=== PATIENT | female | born 1995 | race Caucasian/White ===

== ENCOUNTER 2018-08-26 21:21 | Emergency (ER) | payer BC ==
[2018-08-26] MEDS ORDERED: Sodium Chloride 0.9% 10 ML Syringe FLUSH PRN (21:26)
[2018-08-26] MEDS ORDERED: Sodium Chloride 0.9% 1,000 ML IV ONE (21:27)
--- NOTE | 2018-08-26 21:28 | EDM.PDOC ---
ED HPI GENERAL MEDICAL PROBLEM - General Chief Complaint: Syncope Stated Complaint: Passed out Time Seen by Provider: 08/26/18 21:25 Source of Information: Reports: Patient, EMS Notes Reviewed, RN, RN Notes Reviewed History Limitations: Reports: No Limitations - History of Present Illness INITIAL COMMENTS - FREE TEXT/NARRATIVE: Patient is brought to the ED at [facility] via EMS after the patient had an alleged seizure at a local restaurant. According to EMS, bystanders stated the patient "passed out" and "twitched." Apparently it lasted approximately 5 minutes per bystanders. The patient states she felt somewhat dizzy prior to the event. She states she "knew" she was going to "pass out." Patient states she remember waking up and people around her were asking if she was ok. Patient does not believe she had any head injury. She was helped to the floor by friends. She denies any history of seizures or any neurological problems. She denies any medical history. She currently denies any focal neurological deficits. She denies any headaches or vision problems. She states this past weekend she felt extremely tired and slept a lot. She states she had body aches and felt feverish. She states she has been under a lot of stress due to a recent breakup with her SO. She states she has not been drinking much water. She denies any N/V/D. No abdominal pain. Onset: Today, Sudden Onset Date: 08/26/18 Body aches Pain Score (Numeric/FACES): 4 - Related Data Allergies Allergy/AdvReac Type Severity Reaction Status Date / Time No Known Allergies Allergy Verified 08/26/18 22:07 Home Meds: Home Meds . [No Known Home Meds] 08/26/18 [History] ED ROS GENERAL - Review of Systems Review Of Systems: See Below Constitutional: Reports: Fever, Malaise, Fatigue. Denies: Chills Respiratory: Denies: Shortness of Breath, Cough Cardiovascular: Denies: Chest Pain, Palpitations Endocrine: Reports: Fatigue GI/Abdominal: Denies: Abdominal Pain, Nausea, Vomiting Skin: Reports: No Symptoms Neurological: Reports: Syncope - Physical Exam Exam: See Below Exam Limited By: No Limitations General Appearance: Alert, No Apparent Distress Eye Exam: Bilateral Eye: EOMI, Normal Inspection, PERRL Head Exam: Atraumatic, Normocephalic Neck: Supple, Non-Tender Respiratory/Chest: No Respiratory Distress, Lungs Clear, Normal Breath Sounds Cardiovascular: Normal Peripheral Pulses, Regular Rate, Rhythm GI/Abdominal: Normal Bowel Sounds, Soft, Non-Tender Neuro Exam (Abbreviated): Alert, Oriented, Normal Cognition, No Motor/Sensory Deficits, Other (Patient does not appear to be post ictal) Skin Exam: Warm, Dry, Intact, Normal Color Course - Vital Signs Last Recorded V/S: Last Vital Signs Temp 38.0 C 08/26/18 21:22 Pulse 105 H 08/26/18 21:22 Resp 16 08/26/18 21:22 BP 146/99 H 08/26/18 21:22 Pulse Ox 100 08/26/18 21:22 - Orders/Labs/Meds Orders: Active Orders 24 hr Category Date Time Status Head wo Cont [CT] Stat Exams 08/26/18 21:25 Taken Sodium Chloride 0.9% [Normal Saline] 1,000 ml Med 08/26/18 21:27 Active IV ONETIME Sodium Chloride 0.9% [Saline Flush] Med 08/26/18 21:26 Active 10 ml FLUSH ASDIRECTED PRN Peripheral IV Insertion Adult [OM.PC] Routine Oth 08/26/18 21:26 Ordered Medication Orders Sodium Chloride (Normal Saline) 1,000 mls @ 999 mls/hr IV ONETIME ONE Stop: 08/26/18 22:27 Sodium Chloride (Saline Flush) 10 ml FLUSH ASDIRECTED PRN PRN Reason: Keep Vein Open Labs: Laboratory Tests 08/26/18 08/26/18 08/26/18 Range/Units 21:35 21:40 21:40 WBC 4.6 (4.0-10.0) x10^3/uL RBC 4.39 (4.00-5.50) x10^6/uL Hgb 14.8 (12.0-16.0) g/dL Hct 42.3 (33.0-47.0) % MCV 96.4 H (78.0-93.0) fL MCH 33.7 H (26.0-32.0) pg MCHC 35.0 (32.0-36.0) g/dL RDW Coeff of Rey 11.7 (10.0-15.0) % Plt Count 108 L (130-400) x10^3/uL Neut % (Auto) 73.3 (50.0-80.0) % Lymph % (Auto) 14.9 L (25.0-50.0) % Gregg % (Auto) 11.6 H (2.0-11.0) % Eos % (Auto) 0.0 (0.0-4.0) % Baso % (Auto) 0.2 (0.2-1.2) % Sodium 139 (136-145) mmol/L Potassium 3.1 L (3.5-5.1) mmol/L Chloride 100 (98-107) mmol/L Carbon Dioxide 29 (21-32) mmol/L Anion Gap 13.1 (10-20) mmol/L BUN 14 (7-18) mg/dL Creatinine 0.9 (0.55-1.02) mg/dL Est Cr Clr Drug Dosing TNP Estimated GFR (MDRD) > 60 Glucose 151 H (74-106) mg/dL Calcium 8.5 (8.5-10.1) mg/dL Magnesium 1.6 L (1.8-2.4) mg/dL Urine Color Dark yellow H (YELLOW) Urine Appearance Cloudy H (CLEAR) Urine pH 6.0 (5.0-8.0) Ur Specific [place] 1.025 Urine Protein Trace H (NEGATIVE) mg/dL Urine Glucose (UA) Negative (NEGATIVE) mg/dL Urine Ketones Trace H (NEGATIVE) mg/dL Urine Occult Blood Negative (NEGATIVE) Urine Nitrite Negative (NEGATIVE) Urine Bilirubin Small H (NEGATIVE) Urine Urobilinogen 1.0 (0.2) EU/dL Ur Leukocyte Esterase Negative (NEGATIVE) Urine RBC 0-5 (NOT SEEN) /HPF Urine WBC 0-5 (NOT SEEN) /HPF Ur Squamous Epith Cells Moderate H (NEGATIVE) /HPF Amorphous Sediment Rare Urine Bacteria Few H (NEGATIVE) /HPF Urine Mucus Moderate H (NEGATIVE) /LPF Monoscreen Negative (NEGATIVE) Meds: Medications Generic Name Dose Route Start Last Admin Trade Name Freq PRN Reason Stop Dose Admin Sodium Chloride 1,000 mls @ 999 mls/hr 08/26/18 21:27 Normal Saline IV 08/26/18 22:27 ONETIME ONE Sodium Chloride 10 ml 08/26/18 21:26 Saline Flush FLUSH ASDIRECTED PRN Keep Vein Open Discontinued Medications Generic Name Dose Route Start Last Admin Trade Name Julienne PRN Reason Stop Dose Admin Magnesium Chloride 64 mg 08/26/18 22:06 Mag-64 PO 08/26/18 22:07 ONETIME ONE Potassium Chloride 40 meq 08/26/18 22:06 Klor-Con M20 PO 08/26/18 22:07 ONETIME ONE - Radiology Interpretation Free Text/Narrative:: CT Head: No acute intracranial findings See scanned report in EMR for details CT Results Date: 08/26/18 CT Results Time: 22:00 Departure - Departure Time of Disposition: 22:19 Disposition: Home, Self-Care 01 Condition: Good Clinical Impression: Syncope Qualifiers: Syncope type: unspecified Qualified Code(s): R55 - Syncope and collapse - Discharge Information *PRESCRIPTION DRUG MONITORING PROGRAM REVIEWED*: Not Applicable *COPY OF PRESCRIPTION DRUG MONITORING REPORT IN PATIENT BENY: Not Applicable Instructions: Syncope Referrals: PCP,Unknown [Ordering Only Provider] - Forms: ED Department Discharge Additional Instructions: 1. Stay well hydrated and rest 2. Your blood work showed a low potassium and magnesium 3. Negative for Gregg and Influenza 4. CT of Head is normal 5. Recommend follow up with a Primary Care Provider - Problem List Review Problem List Initiated/Reviewed/Updated: Yes - My Orders Last 24 Hours: My Active Orders 08/26/18 21:25 Head wo Cont [CT] Stat 08/26/18 21:26 Sodium Chloride 0.9% [Saline Flush] 10 ml FLUSH ASDIRECTED PRN Peripheral IV Insertion Adult [OM.PC] Routine 08/26/18 21:27 Sodium Chloride 0.9% [Normal Saline] 1,000 ml IV ONETIME - Assessment/Plan Last 24 Hours: My Active Orders 08/26/18 21:25 Head wo Cont [CT] Stat 08/26/18 21:26 Sodium Chloride 0.9% [Saline Flush] 10 ml FLUSH ASDIRECTED PRN Peripheral IV Insertion Adult [OM.PC] Routine 08/26/18 21:27 Sodium Chloride 0.9% [Normal Saline] 1,000 ml IV ONETIME Assessment:: Syncope Plan: Labs and imaging studies reviewed with patient and family. No acute emergency found for syncope. K and Mag replaced. IVF given. Suspect bp elevated due to syncope. Patient would benefit from fasting labs to recheck glucose and bilirubin. Will recommend follow up with a PCP.
[2018-08-26 22:01] LABS: CHLORIDE,CL 100 mmol/L (98-107); SODIUM,NA 139 mmol/L (136-145)
[2018-08-26 22:03] LABS: ANION GAP 13.1 mmol/L (10-20)
[2018-08-26] MEDS ORDERED: Potassium Chloride 20 MEQ Tab.ER PO ONE (22:06)
[2018-08-26] MEDS ORDERED: Magnesium Chloride 64 MG Tab.ER PO ONE (22:06)
--- NOTE | 2018-08-27 08:09 | CT ---
[id number] CT/CT Head WO IV EXAM: CT Head WO IV CLINICAL DATA: SYNCOPE COMPARISON STUDY: None FINDINGS: No intracranial hemorrhage, extra-axial fluid collection, mass, or acute ischemia. Soft tissues are unremarkable. Paranasal sinuses and mastoid air cells are clear. IMPRESSION: No acute intracranial findings. Chintan Cobb DO 08/27/18 0808 Thank you for allowing us to participate in the care of your patient.
== END 2018-08-26 22:48 | disposition home or self-care (01) ==
LOC: VM.ED 21:21 → EDBD 21:21 → VM.ED 22:48
DX: R55 Syncope and collapse (principal)
CPT/HCPCS: 36415; 70450; 80048; 81001; 83735; 85025; 86308; 87804; 96360; 99285; A9270; J7030